=== PATIENT | male | born 1975 | race Caucasian/White ===

== ENCOUNTER 2023-07-20 17:53 | Emergency (ER) | payer OTHER ==
[2023-07-20 18:06] VITALS: BP 120/81; PULSE 71; RESP 18; TEMP 98; BMI 32.8
[2023-07-20] MEDS ORDERED: predniSONE 20 MG TABLET (UD) ONE (19:22)
[2023-07-20] MEDS ORDERED: CYCLOBENZAPRINE HCL 10 MG TABLET (FP) ONE (19:24)
[2023-07-20] MEDS ORDERED: ACETAMINOPHEN 500 MG TABLET (FP) ONE (19:24)
[2023-07-20] MEDS: CYCLOBENZAPRINE HCL 10 MG TABLET (FP) PO ONE (19:28)
[2023-07-20] MEDS: predniSONE 20 MG TABLET (UD) PO ONE (19:28)
[2023-07-20] MEDS: ACETAMINOPHEN 500 MG TABLET (FP) PO ONE (19:28)
== END 2023-07-20 19:34 | disposition home or self-care (01) ==
LOC: JERFT 17:53 → JER 17:53 → JERFT 19:34
DX: M25.522 Pain in left elbow (principal); M79.632 Pain in left forearm; M25.552 Pain in left hip; M79.605 Pain in left leg; V49.40XA Driver injured in collision with unspecified motor vehicles in traffic accident, initial encounter; Y92.410 Unspecified street and highway as the place of occurrence of the external cause
CPT/HCPCS: 72100-TC-FY; 73070-TC-LT-FY; 99284-25